=== PATIENT | male | born 1975 | race Hispanic/Latino ===

== ENCOUNTER 2023-06-04 09:03 | Emergency (ER) | payer OTHER, SELFPAY ==
[2023-06-04] VITALS (12 sets, daily range): BP systolic 166–199; BP diastolic 89–124; PULSE 75–94; RESP 17–22; TEMP 36.2; O2SAT 97–100
--- NOTE | ~2023-06-04 | XR_ITS ---
XR chest 2V DATE: 06/04/2023 11:24 INDICATION: Left chest pain for 3 weeks. TECHNIQUE: AP and lateral views COMPARISON: None FINDINGS: Normal heart size. No pulmonary infiltrate or consolidation, pleural effusion or pulmonary vascular congestion or pneumothorax. No hilar or mediastinal enlargement. IMPRESSION: No active cardiopulmonary disease Reviewed, dictated and finalized at location B. RETE JOURNEYMAN
--- NOTE | ~2023-06-04 | US_ITS ---
EXAMINATION: US venous doppler [facility] DATE: 06/04/2023 11:40 INDICATION: Left lower limb pain. TECHNIQUE: Grayscale ultrasound images without and with compression and Doppler ultrasound images of the left lower extremity veins were obtained. COMPARISON: None. FINDINGS: The visualized portions of left common femoral vein, profunda (deep) femoral vein, femoral vein, popl iteal vein, peroneal veins, posterior tibial veins, and greater saphenous vein outflow are patent. IMPRESSION: 1. No deep venous thrombosis. Reviewed, dictated and finalized at location A. 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
--- NOTE | ~2023-06-04 | CT_ITS ---
CT of the Abdomen and Pelvis: Indication: Abdominal pain Technique: 2.5 mm axial scans were obtained through the abdomen and pelvis following intravenous adm inistration of 100 cc of Omnipaque 350. Dose reduction technique was used on this scan by utilizing a utomated exposure control and iterative reconstruction technique. The dose-length product (DLP) was 1 143.01 mGy-cm. Findings: Scans through the lung bases are unremarkable. Probable diffuse fatty infiltration of liver present. The spleen, pancreas, gallbladder, adrenals and right kidney are within normal limits. 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 No evidence of aortic aneurysm. No lymphadenopathy. No bowel obstruction or bowel wall thickening. There is no evidence to suggest acute appendicitis. Images through the pelvis were performed. Urinary bladder unremarkable. Prostate gland and seminal ve sicles are unremarkable. No ascites. Impression: No acute reality evident. Diffuse fatty infiltration of liver. Ptotic, malrotated left kidney. Reviewed, dictated and finalized at [facility]. STRIAL ORGANIZATION MANAGER Impression: No acute reality evident. Diffuse fatty infiltration of liver. Ptotic, malrotated left kidney.
--- NOTE | 2023-06-04 09:08 | ECG_ITS ---
Measurements Intervals [place] Rate: 80 P: 39 CT: 157 QRS: 103 QRSD: 93 T: 62 QT: 372 QTc: 430 Interpretive Statements SINUS RHYTHM RIGHT AXIS DEVIATION POSSIBLE LEFT ATRIAL ENLARGEMENT VOLTAGE CRITERIA FOR LVH CANNOT RULE OUT SEPTAL INFARCT, AGE INDETERMINATE ST ELEVATION IN ANTERIOR LEADS- CONSIDER PERICARDITIS, INJURY OR EARLY REPOLARIZATION ABNORMALITY ABNORMAL ECG NO PREVIOUS ECG AVAILABLE FOR COMPARISON Electronically Signed On 06-04-2023 10:02:27 HANDER IN by Kiet Mcghee D.O.
[2023-06-04 09:32] LABS: Basophils Percent Auto 0.6 % (0.2-1.2); Eosinophils Absolute Auto 0.1 K/mm3 (0-0.3); Eosinophils Percent Auto 1.6 % (0-4.4); Hematocrit 42.6 % (42.0-52.0); Hemoglobin 13.6 g/dL (14.0-18.0); Immature Granulocyte Absolute 0.02 K/mm3 (0.00-0.031); Immature Granulocyte Percent A 0.3 % (0-0.5); Lymphocytes Absolute Auto 2.86 K/mm3 (0.9-3.2); Mean Corpuscular HGB Conc 31.9 g/dl (32-36); Mean Corpuscular Hemoglobin 26.7 pg (26-34); Mean Corpuscular Volume 83.7 fl (80-100); Mean Platelet Volume 9.5 fl (7.4-10.4); Monocytes Absolute Auto 0.4 K/mm3 (0.1-0.6); Monocytes Percent Auto 6.3 % (2.6-8.5); Neutrophils Absolute Auto 3.5 K/mm3 (1.3-6.7); Neutrophils Percent Auto 50.2 % (45.5-73.1); Platelet Count Result 268 k/mm3 (150-375); Red Blood Count 5.09 M/mm3 (4.6-6.20); Red Cell Distribution Width 13.3 % (11.5-14.5)
[2023-06-04 09:43] LABS: Alanine Aminotransferase 37 U/L (6-50); Albumin Level 4.2 g/dL (3.5-5.1); Alkaline Phosphatase 158 U/L (38-126); Anion Gap 11 mmol/L (8-16); Aspartate Amino Transferase 37 U/L (17-59); Bilirubin,Total 0.6 mg/dL (0.2-1.3); Blood Urea Nitrogen 12 mg/dL (9-20); Carbon Dioxide 29 mmol/L (22-30); Chloride 94 mmol/L (98-107); Estimated CRCL calculation 167 ml/min; Estimated Glomerular Filt Rate > 60; Glucose 365 mg/dL (65-110); Lipase 222 U/L (23-300); Potassium 4.6 mmol/L (3.4-5.0); Sodium 134 mmol/L (137-145)
[2023-06-04 09:47] LABS: Prothrombin Time 13.5 Seconds (11.1-14.7)
--- NOTE | 2023-06-04 09:47 | ECG_ITS ---
Measurements Intervals [place] Rate: 81 P: 39 MI: 153 QRS: 102 QRSD: 92 T: 59 QT: 370 QTc: 432 Interpretive Statements SINUS RHYTHM RIGHT AXIS DEVIATION VOLTAGE CRITERIA FOR LVH CANNOT RULE OUT SEPTAL INFARCT, AGE INDETERMINATE ST ELEVATION IN ANTERIOR LEADS- CONSIDER PERICARDITIS, INJURY OR EARLY REPOLARIZATION ABNORMALITY ABNORMAL ECG COMPARED TO ECG 06/04/2023 09:17:11 NO SIGNIFICANT CHANGES Electronically Signed On 06-04-2023 10:01:35 SOCIAL STUDIES TEACHER by Kiet Mcghee D.O.
[2023-06-04 09:55] LABS: Troponin I < 0.012 ng/mL (0.000-0.034)
[2023-06-04] MEDS: ASPIRIN 81 MG CHEWABLE TABLET 324 MG PO (10:26)
--- NOTE | 2023-06-04 11:21 | PC.NURSE ---
Pt taken to US at this time
[2023-06-04] MEDS: SODIUM CHLORIDE 0.9% IV 1,000 ML 999 ML IV CONT (12:16)
[2023-06-04] MEDS: MORPHINE SULFATE (*CRX) 4 MG/ML INJ IV PUSH (12:16)
--- NOTE | 2023-06-04 12:33 | ED.GENADULT ---
HPI - General Adult General Chief complaint: Chest Pain Stated complaint: foot pain Time Seen by Provider: 06/04/23 10:21 History of Present Illness HPI narrative: Patient is a 48-year-old male who presents ER with left-sided abdominal pain. Radiates left lower quadrant to left upper quadrant. Ongoing over last month since falling down stairs at work. 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 After falling treat himself at home with Tylenol ibuprofen. He also developed pain in his posterior thigh with bruising that settled down by his calf and ankle. Bruising is improved. Still has pain with ambulating. No numbness or tingling. Pain abdomen is worse with physical movement palpation. Patient reports sometimes radiates into his chest. No difficulty breathing or swallowing. Patient is diabetic and takes metformin. Related Data Home Medications Medication Instructions Recorded Confirmed metformin 500 mg tablet 500 mg PO BID 06/04/23 06/04/23 Allergies Allergy/AdvReac Type Severity Reaction Status Date / Time No Known Allergies Allergy Verified 06/04/23 10:24 Review of Systems Review of Systems: All systems reviewed & are unremarkable except as noted in HPI and below Gastrointestinal: Gastrointestinal: Reports abdominal pain, Denies diarrhea, Denies nausea and Denies vomiting Musculoskeletal: Musculoskeletal: Reports as per HPI Integumentary/Breasts: Skin/Breast: Denies erythema and Denies rash Comments: Leg bruising Neurologic: Denies headache(s), Denies focal weakness and Denies numbness PMFSH Past Medical History Medical History (Updated 06/04/23 @ 14:24 by Harley Amaya MD) Diabetes Surgical History Surgical History (Updated 06/04/23 @ 12:35 by Harley Amaya MD) No pertinent past surgical history Social History Social History (Updated 06/04/23 @ 12:36 by Harley Amaya MD) Substance use type: crack/cocaine Exam Narrative: GENERAL: Well-appearing, well-nourished, and in no acute distress. HEAD: Normocephalic, atraumatic. ENT: Mucous membranes moist. CHEST: Clear to auscultation. No respiratory distress. HEART: Regular rate and rhythm. Normal peripheral pulses. ABDOMEN: Soft, TTP LUQ/LLQ w/o bruising/abrasion, nondistended. EXTREMITIES: Normal range of motion. No edema. Mild posterior left calf/thigh tenderness w/o evidence of trauma. Hamstrings intact. SKIN: Warm, dry, no rash. NEURO: Alert and oriented x3. PSYCH: Normal mood and affect. Course Vital Signs Vital signs: Vital Signs Temperature 97.2 F L 06/04/23 09:11 Pulse Rate 86 06/04/23 09:11 Respiratory Rate 20 06/04/23 09:11 Blood Pressure 199/105 H 06/04/23 09:11 Pulse Oximetry 100 06/04/23 09:11 Oxygen Delivery Room Air 06/04/23 09:11 Temperature 97.2 F L 06/04/23 09:11 Pulse Rate 78 06/04/23 13:33 Respiratory Rate 18 06/04/23 13:33 Blood Pressure 177/110 H 06/04/23 13:33 Pulse Oximetry 98 06/04/23 13:33 Oxygen Delivery Room Air 06/04/23 09:11 Medical Decision Making Vital Signs Vital Signs: Vital Signs Temperature 97.2 F L 06/04/23 09:11 Pulse Rate 86 06/04/23 09:11 Respiratory Rate 20 06/04/23 09:11 Blood Pressure 199/105 H 06/04/23 09:11 Pulse Oximetry 100 06/04/23 09:11 Oxygen Delivery Room Air 06/04/23 09:11 Temperature 97.2 F L 06/04/23 09:11 Pulse Rate 78 06/04/23 13:33 Respiratory Rate 18 06/04/23 13:33 Blood Pressure 177/110 H 06/04/23 13:33 Pulse Oximetry 98 06/04/23 13:33 Oxygen Delivery Room Air 06/04/23 09:11 Lab Data 06/04/23 09:24 06/04/23 09:24 Labs: Lab Results 06/04/23 06/04/23 Range/Units 09:24 12:14 WBC 7.0 (4.5-10.0) K/mm3 RBC 5.09 (4.6-6.20) M/mm3 Hgb 13.6 L (14.0-18.0) g/dL Hct 42.6 (42.0-52.0) % MCV 83.7 (80-100) fl MCH 26.7 (26-34) pg MCHC 31.9 L (32-36) g/dl RDW 13.3 (11.5-14.5) % Plt Count 268 (150-375) k
[2023-06-04 12:44] LABS: Troponin I < 0.012 ng/mL (0.000-0.034)
== END 2023-06-04 15:03 | disposition home or self-care (01) ==
PROVIDERS: Emergency Provider Emergency Medicine
DX: S39.011A Strain of muscle, fascia and tendon of abdomen, initial encounter (principal); S86.912A Strain of unspecified muscle(s) and tendon(s) at lower leg level, left leg, initial encounter; I10 Essential (primary) hypertension; E11.65 Type 2 diabetes mellitus with hyperglycemia; Z79.84 Long term (current) use of oral hypoglycemic drugs; W10.9XXA Fall (on) (from) unspecified stairs and steps, initial encounter
CPT/HCPCS: 36415; 71046; 74177; 80053; 83690; 84484; 85025; 85610; 85730; 93005; 93971; 96361; 96374; 99284; A9270; J2270; J7030; Q9967